=== PATIENT | male | born 1970 | race African-American/Black ===

== ENCOUNTER 2023-07-25 09:09 | Outpatient (CLI) | payer MEDICARE, SELFPAY ==
--- NOTE | 2023-07-25 | ECG_ITS ---
Measurements Intervals [place] Rate: 62 P: -15 NH: 168 QRS: 1 QRSD: 96 T: 69 QT: 480 QTc: 488 Interpretive Statements SINUS RHYTHM VENTRICULAR PREMATURE COMPLEXES LOW QRS VOLTAGE IN LIMB LEADS CANNOT RULE OUT SEPTAL INFARCT, AGE INDETERMINATE CONSIDER INFERIOR INFARCT, AGE INDETERMINATE BASELINE WANDER- I, II, III ABNORMAL ECG NO PRIOR ECG FOR COMPARISON Electronically Signed On 07-25-2023 9:58:04 [employer] FI[employer] COORDINATOR by Dnenis Mayfield D.O.
== END 2023-07-25 09:10 | disposition home or self-care (01) ==
LOC: ANHCARD 09:20
PROVIDERS: PCP Family Medicine; Visit Provider Physician Assistant
DX: Z01.818 Encounter for other preprocedural examination (principal); R94.31 Abnormal electrocardiogram [ECG] [EKG]
CPT/HCPCS: 93005

== ENCOUNTER 2023-08-14 13:17 | Outpatient (CLI) | payer MEDICARE, SELFPAY ==
--- NOTE | 2023-08-14 | ECHO_ITS ---
Patient Info Name: Gibson Maloney Age: 53 years : 1970 Gender: Male Ht: 70 in Wt: 250 lbs BSA: 2.41 m2 HR: 52 bpm BP: 176 / 95 mmHg Technical Quality: Good Exam Date: 08/14/2023 2:49 PM Exam Location: Echo Lab Patient Status: Outpatient Admit Date: 08/14/2023 Staff Ordering Physician: JohanAura Attending Provider: AlejandroAura Exam Type: CA echo doppler color flow Study Info Indications - diastolic dysfunction Complete two-dimensional, color flow and Doppler transthoracic echocardiogram is performed. Summary 1. Complete two-dimensional, color flow and Doppler transthoracic echocardiogram is performed. 2. Left ventricular chamber dimension is normal. 3. Left ventricular systolic function is normal, estimated at 60-65%. 4. There is mild concentric increased left ventricular wall thickness. 5. The left ventricular diastolic function is abnormal. 6. E/e' 17 is elevated. 7. Left atrial chamber dimension is moderately enlarged. 8. Right atrial chamber dimension is moderately enlarged. 9. The mitral valve has moderately calcified annulus. 10. There is mild mitral valve regurgitation. 11. There is trace tricuspid valve regurgitation. 12. There is trace pulmonic regurgitation. 13. There is trivial pericardial effusion. Left Ventricle E/e' 17 is elevated. Left ventricular chamber dimension is normal. Left ventricular systolic function is normal, estimated at 60-65%. There is mild concentric increased left ventricular wall thickness. The left ventricular diastolic function is abnormal. Right Ventricle Right ventricular systolic function is normal and with normal TAPSE 2.7 cm. Right ventricular chamber dimension is normal. Left Atria Left atrial chamber dimension is moderately enlarged. Right Atria Right atrial chamber dimension is moderately enlarged. Aortic Valve The aortic valve is trileaflet. There is no aortic valve stenosis. There is no aortic valve regurgitation. Pulmonic Valve There is trace pulmonic regurgitation. Mitral Valve The mitral valve has moderately calcified annulus. There is no mitral valve stenosis. There is mild mitral valve regurgitation. Tricuspid Valve There is trace tricuspid valve regurgitation. RVSP is not calculated due to an inadequate TR jet. Pericardium/Pleural There is trivial pericardial effusion. Inferior Vena Cava Normal inferior vena cava with >50% collapse upon inspiration consistent with normal right atrial pressure, 5 mmHg. Aorta The aortic root size at the sinus of Valsalva is normal. Left Ventricular Outflow Tract Name Value Normal LVOT 2D LVOT Diameter 2.1 cm LVOT Doppler LVOT Peak Gradient 2 mmHg LVOT Mean Gradient 1 mmHg LVOT VTI 23 cm LVOT VTI/AV VTI Ratio 0.6 LVOT Stroke Volume 83 ml LVOT CO 4.2 l/min LVOT CI 1.8 l/min/m2 Pulmonic Valve Name Value Normal
== END 2023-08-14 13:18 | disposition home or self-care (01) ==
LOC: ANHCARD 13:18
PROVIDERS: PCP Family Medicine; Visit Provider Physician Assistant
DX: I51.9 Heart disease, unspecified (principal); Z01.818 Encounter for other preprocedural examination; I34.0 Nonrheumatic mitral (valve) insufficiency
CPT/HCPCS: 93306

== ENCOUNTER 2023-09-25 12:48 | Outpatient (CLI) | payer MEDICARE, SELFPAY ==
[2023-09-25 14:29] LABS: Potassium 4.6 mmol/L (3.4-5.0)
== END 2023-09-25 12:49 | disposition home or self-care (01) ==
PROVIDERS: PCP Family Medicine; Visit Provider Ophthalmology
DX: E11.9 Type 2 diabetes mellitus without complications (principal)
CPT/HCPCS: 36415; 84132

== ENCOUNTER 2024-04-29 10:32 | Outpatient (CLI) | payer MEDICARE, SELFPAY ==
[2024-04-29 11:56] LABS: Cholesterol 151 mg/dL (0-200); HDL Direct 61 mg/dL; Triglycerides 64 mg/dL (<150)
[2024-04-29 12:06] LABS: LDL Cholesterol Direct 58 mg/dL
== END 2024-04-29 10:33 | disposition home or self-care (01) ==
PROVIDERS: PCP Physician Assistant; Visit Provider Internal Medicine Cardiovascular Disease
DX: E78.5 Hyperlipidemia, unspecified (principal)
CPT/HCPCS: 36415; 80061

== ENCOUNTER 2024-08-23 11:45 | Emergency (ER) | payer MEDICARE, SELFPAY ==
--- NOTE | ~2024-08-23 | CT_ITS ---
CT abdomen pelvis wo con Ordering provider: Varinder Guerrero MD History: 54 years Male with . RUQ pain . Comparison: None. Technique: CT abdomen and pelvis without IV and without oral contrast. Automated exposure control and iterative reconstruction technique were employed. The dose-length product was 1007.56 mGy-cm. Findings: VISUALIZED LOWER CHEST: Normal. UPPER ABDOMINAL ORGANS: Liver: Normal. Gallbladder: Normal. Spleen: Normal. Stomach/duodenum: Normal. Pancreas: Normal. Adrenals: Normal. Kidneys: Tiny calcification in the right and left kidney lower pole which may be a stone or vascular calcification. PELVIC ORGANS: The bladder is underfilled with thickened wall. Evaluation for cystitis advised. BOWEL AND MESENTERY: Colon: No evidence of diverticulitis. Fecal material is seen in the colon.. No evidence of appendicit is with nonvisualization of the appendix. Small Bowel: Normal. No obstruction. Peritoneum/mesentery: No free air or free fluid. No mesenteric lymphadenopathy. RETROPERITONEUM: Mild atheromatous disease of the abdominal aorta. No retroperitoneal lymphadenopat hy. MUSCULOSKELETAL: Superficial soft tissues: The superficial soft tissues are normal. Bones: Age appropriate degenerative changes of the spine. IMPRESSION: 1. No evidence of appendicitis, diverticulitis or intestinal obstruction. 2. Tiny calcifications in the right and left kidney which is most likely vascular. Stones are less l ikely. 3. Constipation. Reviewed, dictated and finalized at location A. [employer] IMPRESSION: 1. No evidence of appendicitis, diverticulitis or intestinal obstruction. 2. Tiny calcifications in the right and left kidney which is most likely vascu lar. Stones are less likely. 3. Constipation.
[2024-08-23 12:21] VITALS: BP 167/91; PULSE 75; RESP 16; TEMP 36.4; O2SAT 97
[2024-08-23 14:50] VITALS: BP 191/110; PULSE 70; RESP 17; O2SAT 99
[2024-08-23 15:06] LABS: Basophils Percent Auto 0.4 % (0.2-1.2); Eosinophils Absolute Auto 0.1 K/mm3 (0-0.3); Hematocrit 38.3 % (42.0-52.0); Hemoglobin 12.5 g/dL (14.0-18.0); Immature Granulocyte Absolute 0.02 K/mm3 (0.00-0.031); Immature Granulocyte Percent A 0.4 % (0-0.5); Lymphocytes Absolute Auto 1.11 K/mm3 (0.9-3.2); Lymphocytes Percent Auto 24.6 % (18.3-44.2); Mean Corpuscular HGB Conc 32.6 g/dl (32-36); Mean Corpuscular Hemoglobin 32.4 pg (26-34); Mean Corpuscular Volume 99.2 fl (80-100); Mean Platelet Volume 9.2 fl (7.4-10.4); Monocytes Absolute Auto 0.6 K/mm3 (0.1-0.6); Neutrophils Absolute Auto 2.6 K/mm3 (1.3-6.7); Neutrophils Percent Auto 58.6 % (45.5-73.1); Platelet Count Result 178 k/mm3 (150-375); Red Blood Count 3.86 M/mm3 (4.6-6.20); White Blood Count 4.5 K/mm3 (4.5-10.0)
[2024-08-23 15:16] LABS: Alanine Aminotransferase 30 U/L (6-50); Albumin Level 4.5 g/dL (3.5-5.1); Alkaline Phosphatase 77 U/L (38-126); Anion Gap 12 mmol/L (4-12); Aspartate Amino Transferase 36 U/L (17-59); Bilirubin,Total 1.1 mg/dL (0.2-1.3); Blood Urea Nitrogen 85 mg/dL (9-20); Calcium 7.6 mg/dL (8.4-10.2); Carbon Dioxide 30 mmol/L (22-30); Chloride 99 mmol/L (98-107); Estimated CRCL calculation 9 ml/min; Estimated Glomerular Filt Rate 6; Glucose 76 mg/dL (65-110); Lipase 135 U/L (23-300); Sodium 141 mmol/L (137-145)
[2024-08-23 15:26] LABS: Add Urine Microscopic? YES; Appearance Urine Cloudy (Clear); Bacteria Urine None Seen /hpf; Bilirubin Urine Negative (Negative); Blood Urine Negative (Negative); Color Urine Dark Yellow (Yellow); Glucose Urine UA Negative (Negative); Ketones Urine Trace mg/dL (Negative); Leukocyte Esterase Ur Trace LEU/UL (Negative); Need Manual Microscopic Reviewed; Nitrate Urine Negative (Negative); Protein Urine 2+ mg/dL (Negative); RBC Urine 0-2 /hpf (0-2); Specific Grav Ur 1.015 (1.001-1.035); Squamous Epithelial Cell Urine Occasional /hpf (Few)
--- NOTE | 2024-08-23 15:46 | ED_ITS ---
HPI - General Adult General Chief complaint: Nausea/Vomiting/Diarrhea Stated complaint: n/v/d Time Seen by Provider: 08/23/24 14:47 History of Present Illness HPI narrative: 54-year-old male presenting emergency department for back for nausea vomiting diarrhea. Patient reports symptoms started a week ago on Sunday. Patient reports that was a massive purge. Patient does have end-stage renal disease does get dialysis typical and Sunday. Patient's schedule was thrown off because all day and patient did have dialysis on but because he was feeling ill on Sunday he did not have his dialysis. Patient does complain of right upper quadrant pain. Patient has no prior history gallbladder disease or cholecystectomy. Related Data Home Medications ?Medication ?Instructions ?Recorded ?Confirmed ?Last Taken ?Type atorvastatin 20 mg tablet 20 mg PO DAILY 08/16/23 03/28/24 Unknown History furosemide 80 mg tablet 80 mg PO BID 08/16/23 03/28/24 Unknown History hydralazine 50 mg tablet 50 mg PO TID 08/16/23 03/28/24 Unknown History apixaban 5 mg tablet (Eliquis) 5 mg PO BID 03/27/24 03/28/24 Unknown History baclofen 5 mg tablet 5 mg PO DAILY 03/27/24 03/28/24 Unknown History metoprolol succinate 25 mg 12.5 mg PO BID 03/27/24 03/28/24 Unknown History tablet,extended release 24 hr Allergies Allergy/AdvReac Type Severity Reaction Status Date / Time AVILA Inhibitors Allergy Unknown Other Verified 03/27/24 15:34 No Known Allergies Allergy Verified 03/27/24 15:34 Review of Systems 2 Review of Systems: All systems reviewed & are unremarkable except as noted in HPI and below PMFSH Surgical History Surgical History History of appendectomy Family History Family History Mother Family history of diabetes mellitus in first degree relative Father Family history of diabetes mellitus in first degree relative Sibling Family history of diabetes mellitus in first degree relative Social History Social History Smoking status: Never smoker Alcohol intake: never Do You Feel Safe in your Home?: Yes Lack of Transportation: No Lack of Food: Never True Current Housing: I Have Housing Concerned About Future Housing: No Difficulty Paying Gas/Electric Bills: No Difficulty Paying for Meds: No Currently Unemployed: YES Education: Bachelor's Degree Difficulty w/ Childcare or Family Care: No Exam 2 Narrative: APPEARANCE: Well appearing, no pain, no distress, well-nourished. HEAD: normocephalic, atraumatic. EYES: PERRLA/EOMI, conjunctivae clear. NOSE: Normal no drainage EARS:TMS clear with good light reflex. THROAT: Pharynx clear, no exudate. NECK: Supple. No adenopathy, no masses. RESPIRATORY: Airway patent, respirations nonlabored. Clear to auscultation bilaterally, no rales, rhonchi, wheezing. CARDIOVASCULAR: Regular rate and rhythm without murmurs rubs or gallops. ABDOMINAL: Right upper quadrant tenderness to palpation MUSCULOSKELETAL: Moves all extremities. Strength/ROM intact, No edema, No calf tenderness. NEURO: Alert. Cranial nerves II through XII intact. Grossly intact SKIN: Warm, dry. Normal Color Course Vital Signs Vital signs: Vital Signs Temperature 97.5 F L 08/23/24 12:21 Pulse Rate 75 08/23/24 12:21 Respiratory Rate 16 08/23/24 12:21 Blood Pressure 167/91 H 08/23/24 12:21 Pulse Oximetry 97 08/23/24 12:21 Oxygen Delivery Room Air 08/23/24 12:21 Temperature 97.5 F L 08/23/24 12:21 Pulse Rate 70 08/23/24 14:50 Respiratory Rate 17 08/23/24 14:50 Blood Pressure 191/110 H 08/23/24 14:50 Pulse Oximetry 99 08/23/24 14:50 Oxygen Delivery Room Air 08/23/24 12:21 Medical Decision Making [facility] Narrative Medical decision making narrative: 54-year-old male presents to the emergency department for evaluation for persistent nausea vomiting and diarrhea. Patient does have right upper quadrant abdominal pain. Patient is afebrile with no leukocytosis and hemoglobin of 12.5. Patient has no significant abnormalities on his electrolytes. T bili AST ALT alk-phos and lipase are within normal limits. UA does have some white blood cells in the urine but no symptoms of UTI. CT scan did show evidence of constipation. Patient was updated the results of his workup. Patient was advised to follow a clear liquid diet for the next 1-3 days and take Zofran as needed for nausea control. Patient does have dialysis scheduled again on Sunday. Patient was comfortable plan for discharge and close follow-up. Patient was well-appearing at time of discharge. Differential Diagnosis Differential Diagnosis: Bowel obstruction, colitis, diverticulitis cholecystitis, biliary colic, pneumonia Vital Signs Vital Signs: Vital Signs Temperature 97.5 F L 08/23/24 12:21 Pulse Rate 75 08/23/24 12:21 Respiratory Rate 16 08/23/24 12:21 Blood Pressure 167/91 H 08/23/24 12:21 Pulse Oximetry 97 08/23/24 12:21 Oxygen Delivery Room Air 08/23/24 12:21 Temperature 97.5 F L 08/23/24 12:21 Pulse Rate 70 08/23/24 14:50 Respiratory Rate 17 08/23/24 14:50 Blood Pressure 191/110 H 08/23/24 14:50 Pulse Oximetry 99 08/23/24 14:50 Oxygen Delivery Room Air 08/23/24 12:21 Lab Data Lab results reviewed: Yes I reviewed the patient's lab results. 08/23/24 14:57 08/23/24 14:57 Labs: Lab Results 08/23/24 08/23/24 Range/Units 14:57 15:07 WBC 4.5 (4.5-10.0) K/mm3 RBC 3.86 L (4.6-6.20) M/mm3 Hgb 12.5 L (14.0-18.0) g/dL Hct 38.3 L (42.0-52.0) % MCV 99.2 (80-100) fl MCH 32.4 (26-34) pg MCHC 32.6 (32-36) g/dl RDW 14.0 (11.5-14.5) % Plt Count 178 (150-375) k/mm3 MPV 9.2 (7.4-10.4) fl Immature Gran % (Auto) 0.4 (0-0.5) % Neut % (Auto) 58.6 (45.5-73.1) % Lymph % (Auto) 24.6 (18.3-44.2) % [place] % (Auto) 14.0 H (2.6-8.5) % Eos % (Auto) 2.0 (0-4.4) % Baso % (Auto) 0.4 (0.2-1.2) % Lymph # (Auto) 1.11 (0.9-3.2) K/mm3 Powell # (Auto) 0.6 (0.1-0.6) K/mm3 Eos # (Auto) 0.1 (0-0.3) K/mm3 Baso # (Auto) 0.0 (0.0-0.1) K/mm3 Abs Immat Gran (auto) 0.02 (0.00-0.031) K/mm3 Absolute Neuts (auto) 2.6 (1.3-6.7) K/mm3 Absolute Nucleated RBC 0.000 (0.0-0.012) K/mm3 Nucleated RBC % 0.0 (0.0-0.2) % Sodium 141 (137-145) mmol/L Potassium 4.0 (3.4-5.0) mmol/L Chloride 99 (98-107) mmol/L Carbon Dioxide 30 (22-30) mmol/L Anion Gap 12 (4-12) mmol/L BUN 85 H (9-20) mg/dL Creatinine 10.70 H (0.7-1.3) mg/dL Estim Creat Clear Calc 9 ml/min Estimated GFR 6 L (59 - ) Glucose 76 (65-110) mg/dL Calcium 7.6 L (8.4-10.2) mg/dL Total Bilirubin 1.1 (0.2-1.3) mg/dL AST 36 (17-59) U/L ALT 30 (6-50) U/L Alkaline Phosphatase 77 (38-126) U/L Total Protein 8.0 (6.3-8.2) g/dL Albumin 4.5 (3.5-5.1) g/dL Lipase 135 (23-300) U/L Urine Color Dark yellow (Yellow) Urine Appearance Cloudy H (Clear) Urine pH 5.0 (5.0-9.0) Ur Specific [place] 1.015 (1.001-1.035) Urine Protein 2+ H (Negative) mg/dL Urine Glucose (UA) Negative (Negative) mg/dL Urine Ketones Trace H (Negative) mg/dL Ur Blood (Man) Negative (Negative) Urine Nitrate Negative (Negative) Urine Bilirubin Negative (Negative) Urine Urobilinogen 1.0 (<2.0) mg/dL Add Ur Microanalysis Reviewed Leukocyte Esterase Rfl Trace H (Negative) TIAN/UL Urine RBC 0-2 (0-2) /hpf Urine WBC 6-10 H (0-3) /hpf Ur Squamous Epith Cells Occasional (Few) /hpf Urine Bacteria None seen /hpf Urine Casts 6-10 Imaging Data Radiologist's impression: Impressions Abdomen/Pelvis CT 08/23/24 16:30 IMPRESSION: 1. No evidence of appendicitis, diverticulitis or intestinal obstruction. 2. Tiny calcifications in the right and left kidney which is most likely vascular. Stones are less likely. 3. Constipation. Discharge Plan Discharge Clinical Impression: N&V (nausea and vomiting), Constipation Patient Disposition: Home, Self-Care Condition: Stable Instructions: Antibiotic Form, Constipation (DC), Clear Liquid Diet (ED), Acute Nausea and Vomiting (ED) Additional Instructions: Clear liquid diet for the next 1-3 days. Reglan as needed for nausea control. Have close follow-up with your primary care physicians. And go to dialysis as scheduled. If you have any worsening symptoms then please call or return to the emergency department. Patient Language: Macedonian Prescriptions: New metoclopramide HCl [Reglan] 10 mg tablet 10 mg PO Q6H PRN (Reason: nausea and vomiting) Qty: 14 0RF No Action Eliquis 5 mg tablet 5 mg PO BID furosemide 80 mg tablet 80 mg PO BID atorvastatin 20 mg tablet 20 mg PO DAILY hydralazine 50 mg tablet 50 mg PO TID baclofen 5 mg tablet 5 mg PO DAILY metoprolol succinate 25 mg tablet extended release 24 hr 12.5 mg PO BID Follow-up/Referrals: Johan,FRANCI Chavarria [Primary Care Provider] -
== END 2024-08-23 18:23 | disposition home or self-care (01) ==
PROVIDERS: Emergency Provider Emergency Medicine; PCP Physician Assistant
DX: R11.2 Nausea with vomiting, unspecified (principal); K59.00 Constipation, unspecified; N18.6 End stage renal disease; Z99.2 Dependence on renal dialysis; Z79.01 Long term (current) use of anticoagulants; Z79.899 Other long term (current) drug therapy; R93.422 Abnormal radiologic findings on diagnostic imaging of left kidney; R93.421 Abnormal radiologic findings on diagnostic imaging of right kidney
CPT/HCPCS: 36415; 74176; 80053; 81001; 83690; 85025; 87086; 96374; 99284

== ENCOUNTER 2025-02-23 13:29 | Outpatient (CLI) | payer MEDICARE, SELFPAY ==
--- OUTSIDE RECORDS SUMMARY | 2025-02-23 13:51 | XMS_ITS | Data Portability ---
Author Organization [facility] Address [address] [place] [address] Care Team Providers Care Reservations Specialist Name Role Phone AURA FLORES Primary Care Provider Assessment Encounter Date Assessment Date Assessment LastModified by Organization Details LastModified Time 07/24/2023 07/24/2023 Sections of the HPI, exam and assessment completed by FRANCI Brownlee student and have been reviewed by me. I agree with the exam findings, assessment and plan except where specifically documented or amended. -ANTELMO Martins PA-C [email or web address] Not available 07/25/2023 15:03:45 10/09/2023 10/09/2023 Sections of the HPI, exam and assessment completed by FRANCI Brownlee student and have been reviewed by me. I agree with the exam findings, assessment and plan except where specifically documented or amended. -ANTELMO Martins PA-C [email or web address] Not available 10/09/2023 15:59:36 Plan of Treatment Reminders Order Date Submit Date Provider Last Modified By Organization Details Last Modified Time Details Appointments ANY 15 2024 01:00P FRANCI MCDUFFIE Not available Not available Not available Lab hemoglobi n A1c, QN, blood 2024 025 [email or web address] [facility], [address], [address], [place], [address], 02/18/2025 08:25:46 CBC w/ auto diff 2024 025 [facility]/Ekg, [address], [place], [address], 02/23/2025 14:47:04 CMP, serum or plasma 2024 025 [facility], [address], [place], [address], 02/23/2025 14:45:00 lipid panel, serum 2024 025 [facility]/Ekg, [facility], [place], [address], 02/23/2025 14:43:56 TSH + free T4, serum 2024 025 [facility] Registration [facility]/Ekg, [address], [place], [address], 02/23/2025 14:43:09 HbA1c (hemoglob in A1c), blood 2023 024 [email or web address] In-Office Order, Internal Use Only DO Not Attach Compendium DO Not Attach Compendium, Do Not Delete/merge, [id number] 10/09/2023 15:59:23 noninvasi ve colorecta l cancer DNA + occult blood screening , QL, stool 2022 023 [facility] (Cologuard Orders Only), [address], [address], [place], [address], 09/27/2023 09:46:42 CBC w/ auto diff 2022 023 [facility], [address], [place], [address], 07/25/2023 19:08:33 TSH + free T4, serum 2022 023 VALERIO [facility], [address], [place], [address], 07/26/2023 02:35:57 CMP, serum or plasma 2022 023 COTTER [facility], [address], [place], [address], 07/25/2023 19:08:32 HbA1c (hemoglob in A1c), blood 2022 023 [email or web address] In-Office Order, Internal Use Only DO Not Attach Compendium DO Not Attach Compendium, Do Not Delete/merge, [id number] 07/24/2023 15:56:16 lipid panel, serum 2022 023 COTTER [facility], [address], [place], [address], 07/25/2023 19:08:32 Referral gastroent erologist referral 2024 025 [email or web address] Marcelino Whitten MD, [address], [address], [place], [address], 02/11/2025 08:03:21 podiatris t referral 2022 023 guy Herrmann DPM, [address], [address], [place], [address], 09/05/2023 11:15:50 gastroent erologist referral [address], [address], [place], [address], 08/08/2023 15:49:15 Procedures None recorded. Surgeries None recorded. Imaging electroca rdiogram, routine ECG, 12 leads min 2022 023 [facility], [address], [address], [place], [address], 07/25/2023 12:27:57 US, echocardi ogram, transthor acic, complete 2022 023 [facility], [address], [address] [facility], [place], [address], 08/28/2023 17:36:08 Medication Orders atorvasta tin 40 mg tablet 2024 025 VALERIO [id number], [address], [place], [place], [id number], 01/28/2025 15:53:56 Patient TargetsNo targets recorded. 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 Referral for Onyc homycosis of toenails Referring Physician: Aura Flores [facility], Encounter Date: 07/24/2023 Degreaser Referral for Screening for malignant neoplasm of colon Referring Physician: Aura Flores [facility], Encounter Date: 07/24/2023 Degreaser Referral for Screening for malignant neoplasm of colon Referring Physician: Aura Flores [facility], Encounter Date: 01/28/2025 Results Created Date Observation Date Name Description Value Unit Range Abnormal Flag Note LastModifiedBy Organization Detail LastModifiedTime 07/24/2007/25/2023 LIPID PANEL WITH LDL/H DL RATIO cholesterol, total 214 mg/dL 100-19 9 above high normal Not Available [facility] Department [address] [place], [address], 07/25/2023 19:08:32 07/24/2007/25/2023 LIPID PANEL WITH LDL/H DL RATIO triglyceride s 103 mg/dL 0-149 Not Available [facility] Department [address] [place], [address], 07/25/2023 19:08:32 07/24/2007/25/2023 LIPID PANEL WITH LDL/H DL RATIO HDL cholesterol 46 mg/dL 40-[address] [facility] Department [address] [place], [address], 07/25/2023 19:08:32 07/24/20 23 07/25/2023 LIPID PANEL WITH LDL/H DL RATIO VLDL cholesterol marie 21 mg/dL 5-40 Not Available [facility] Department [address] [place], [address], 07/25/2023 19:08:32 07/24/20 23 07/25/2023 LIPID PANEL WITH LDL/H DL RATIO LDL chol calc ([facility]) 161 mg/dL 0-99 above high normal Not Available [facility] Department [address] [place], [address], 07/25/2023 19:08:32 07/24/20 23 07/25/2023 LIPID PANEL WITH LDL/H DL RATIO LDL/HDL ratio 3.5 0-3.6 Not Available [facility] Department [address] [place], [address], 07/25/2023 19:08:32 07/24/20 23 07/25/2023 COMP. METAB OLIC PANEL (14) glucose 84 mg/dL 70-[address] [facility] Department [address] [place], [address], 07/25/2023 19:08:32 07/24/20 23 07/25/2023 COMP. METAB OLIC PANEL (14) BUN 76 mg/dL 6-24 panic high RESUL TS VERIF IED AND SHARP D TO FRANCI Guerra BY Tammy acuña AT 1723 ON 07/25. Not Available [facility] Department [address] [place], [address], 07/25/2023 19:08:32 07/24/20 23 07/25/2023 COMP. METAB OLIC PANEL (14) creatinine 5.62 mg/dL 0.76-1 .27 panic high RESUL TS VERIF IED AND SHARP D TO FRANCI Guerra BY Tammy acuña AT 1728 ON 07/25. Not Available [facility] Department [address] [place], [address], 07/25/2023 19:08:32 07/24/20 23 07/25/2023 COMP. METAB OLIC PANEL (14) eGFR 11 >=60 below low normal Units for eGFR value s are mL/mi n/1.7 3 The eGFR Calcu latio n has not been valid ated for patie nts under the age of 18. If test resul ts are displ ayed for a patie nt under the age of 18, disre jeannette that value . Not Available [facility] Department [address] [place], [address], 07/25/2023 19:08:32 07/24/20 23 07/25/2023 COMP. METAB OLIC PANEL (14) BUN/creatini ne ratio 14 9-20 Not Available [facility] Department [address] [place], [address], 07/25/2023 19:08:32 07/24/20 23 07/25/2023 COMP. METAB OLIC PANEL (14) sodium 144 mmol/ L 134-[address] [facility] Department [address] [place], [address], 07/25/2023 19:08:32 07/24/20 23 07/25/2023 COMP. METAB OLIC PANEL (14) potassium 5.3 mmol/ L 3.5-5. 2 above high normal Not Available [facility] Department [address] [place], [address], 07/25/2023 19:08:32 07/24/20 23 07/25/2023 COMP. METAB OLIC PANEL (14) chloride 104 mmol/ L 96-[address] [facility] Department [address] [place], [address], 07/25/2023 19:08:32 07/24/20 23 07/25/2023 COMP. METAB OLIC PANEL (14) carbon dioxide, total 25 mmol/ L Not Available [facility] Department [address] [place], [address], 07/25/2023 19:08:32 07/24/20 23 07/25/2023 COMP. METAB OLIC PANEL (14) calcium 7.8 mg/dL 8.7-10 .2 below low normal Not Available [facility] Department [address] [place], [address], 07/25/2023 19:08:32 07/24/20 23 07/25/2023 COMP. METAB OLIC PANEL (14) protein, total 7.2 g/dL 6.0-8. [address] [facility] Department [address] [place], [address], 07/25/2023 19:08:32 07/24/20 23 07/25/2023 COMP. METAB OLIC PANEL (14) albumin 4.3 g/dL 3.8-4. [address] [facility] Department [address] [place], [address], 07/25/2023 19:08:32 07/24/20 23 07/25/2023 COMP. METAB OLIC PANEL (14) globulin, total 2.9 g/dL 1.5-4. [address] [facility] Department [address] [place], [address], 07/25/2023 19:08:32 07/24/20 23 07/25/2023 COMP. METAB OLIC PANEL (14) A/G ratio 1.0 1.2-2. 2 below low normal Not Available [facility] Department [address] [place], [address], 07/25/2023 19:08:32 07/24/20 23 07/25/2023 COMP. METAB OLIC PANEL (14) bilirubin, total 0.3 mg/dL 0.0-1. [address] [facility] Department [address] [place] [address], [address], 07/25/2023 19:08:32 07/24/20 23 07/25/2023 COMP. METAB OLIC PANEL (14) alkaline phosphatase 98 IU/L 44-[address] [facility] Department [address] [place], [address], 07/25/2023 19:08:32 07/24/20 23 07/25/2023 COMP. METAB OLIC PANEL (14) AST (SGOT) 20 IU/L 0-40 Not Available [facility] Department [address] [place] [address], [address], 07/25/2023 19:08:32 07/24/20 23 07/25/2023 COMP. METAB OLIC PANEL (14) ALT (SGPT) 16 IU/L 0-44 Not Available [facility] Department [address] [place] [address], [address], 07/25/2023 19:08:32 07/24/20 23 07/25/2023 CBC WITH DIFFE RENTI AL/PL ATELE T WBC 6.5 x10e3 /uL 3.4-[address] [facility] Department [address] [place] [address], [address], 07/25/2023 19:08:33 07/24/20 23 07/25/2023 CBC WITH DIFFE RENTI AL/PL ATELE T RBC 3.31 x10e6 /uL 4.14-5 .80 below low normal Not Available [facility] Department [address] [place] [address], [address], 07/25/2023 19:08:33 07/24/20 23 07/25/2023 CBC WITH DIFFE RENTI AL/PL ATELE T hemoglobin 10.2 g/dL 13.0-1 7.7 below low normal Not Available [facility] Department [address] [place], [address], 07/25/2023 19:08:33 07/24/20 23 07/25/2023 CBC WITH DIFFE RENTI AL/PL ATELE T hematocrit 34.1 % 37.5-5 1.0 below low normal Not Available [facility] Department [address] [place], [address], 07/25/2023 19:08:33 07/24/20 23 07/25/2023 CBC WITH DIFFE RENTI AL/PL ATELE T MCV 103 fL 79-97 above high normal Not Available [facility] Department [address] [place], [address], 07/25/2023 19:08:33 07/24/20 23 07/25/2023 CBC WITH DIFFE RENTI AL/PL ATELE T MCH 30.8 pg 26.6-[address] [facility] Department [address] [place], [address], 07/25/2023 19:08:33 07/24/20 23 07/25/2023 CBC WITH DIFFE RENTI AL/PL ATELE T MCHC 29.9 g/dL 31.5-3 5.7 below low normal Not Available [facility] Department [address] [place], [address], 07/25/2023 19:08:33 07/24/20 23 07/25/2023 CBC WITH DIFFE RENTI AL/PL ATELE T RDW 11.9 % 11.5-[address] [facility] Department [address] [place], [address], 07/25/2023 19:08:33 07/24/20 23 07/25/2023 CBC WITH DIFFE RENTI AL/PL ATELE T platelets 246 x10e3 /uL 150-[address] [facility] Department [address] [place], [address], 07/25/2023 19:08:33 07/24/20 23 07/25/2023 CBC WITH DIFFE RENTI AL/PL ATELE T neutrophils 64 % notest b. Not Available [facility] Department [address] [place], [address], 07/25/2023 19:08:33 07/24/20 23 07/25/2023 CBC WITH DIFFE RENTI AL/PL ATELE T lymphs 18 % notest b. Not Available [facility] Department [address] [place], [address], 07/25/2023 19:08:33 07/24/20 23 07/25/2023 CBC WITH DIFFE RENTI AL/PL ATELE T monocytes 13 % notest b. Not Available [facility] Department [address] [place], [address], 07/25/2023 19:08:33 07/24/20 23 07/25/2023 CBC WITH DIFFE RENTI AL/PL ATELE T eos 5 % notest b. Not Available [facility] Department [address] [place], [address], 07/25/2023 19:08:33 07/24/20 23 07/25/2023 CBC WITH DIFFE RENTI AL/PL ATELE T basos 1 % notest b. Not Available [facility] Department [address] [place], [address], 07/25/2023 19:08:33 07/24/20 23 07/25/2023 CBC WITH DIFFE RENTI AL/PL ATELE T neutrophils (absolute) 4.2 x10e3 /uL 1.4-7. [address] [facility] Department [address] [place], [address], 07/25/2023 19:08:33 07/24/20 23 07/25/2023 CBC WITH DIFFE RENTI AL/PL ATELE T lymphs (absolute) 1.2 x10e3 /uL 0.7-3. [address] [facility] Department [address] [place], [address], 07/25/2023 19:08:33 07/24/20 23 07/25/2023 CBC WITH DIFFE RENTI AL/PL ATELE T monocytes(ab solute) 0.9 x10e3 /uL 0.1-0. [address] [facility] Department [address] [place], [address], 07/25/2023 19:08:33 07/24/20 23 07/25/2023 CBC WITH DIFFE RENTI AL/PL ATELE T eos (absolute) 0.3 x10e3 /uL 0.0-0. [address] [facility] Department [address] [place], [address], 07/25/2023 19:08:33 07/24/20 23 07/25/2023 CBC WITH DIFFE RENTI AL/PL ATELE T baso (absolute) 0.0 x10e3 /uL 0.0-0. [address] [facility] Department [address] [place], [address], 07/25/2023 19:08:33 07/24/20 23 07/25/2023 CBC WITH DIFFE RENTI AL/PL ATELE T immature granulocytes 0.5 % notest b. Not Available [facility] Department [address] [place], [address], 07/25/2023 19:08:33 07/24/20 23 07/25/2023 CBC WITH DIFFE RENTI AL/PL ATELE T immature grans (abs) 0.0 x10e3 /uL 0.0-0. [address] [facility] Department [address] [place], [address], 07/25/2023 19:08:33 07/24/20 23 07/25/2023 CBC WITH DIFFE RENTI AL/PL ATELE T NRBC 0 % 0-0 Not Available [facility] Him Department [address], [place], [address], 07/25/2023 19:08:33 07/24/2007/26/2023 TSH+F REE T4 TSH 1.560 uIU/m L 0.450- 4.500 Not Available [facility] ([facility]) [address], [place], [address], 07/26/2023 08:31:14 07/24/20 23 07/26/2023 TSH+F REE T4 T4,free(dire ct) 1.28 NG/dL 0.82-1 .77 Not Available [facility] ([facility]) [address], [place], [address], 07/26/2023 08:31:14 07/24/20 23 07/24/2023 HbA1c (hemo globi n A1c), blood HbA1c 6.2% Not Available In-Office Order Internal Use Only DO Not Attach Compendium DO Not Attach Compendium, Do Not Delete/merge, [id number] 07/24/2023 15:49:31 09/07/19 24 09/07/2023 COLOG UARD cologuard result reportable Negati ve negati ve normal NEGAT LAMIN TEST RESUL T. A negat lamin Colog uard resul t indic ates a low likel ihood that a color ectal cance r (CRC) or advan indy adeno ma (chandni omato us polyp s with more advan indy pre-m align ant featu res) is prese nt. The chanc e that a perso n with a negat lamin Colog uard test has a color ectal cance r is less than 1 in 1500 (nega tive predi ctive value >99.9 %) or has an advan indy adeno ma is less than 5.3% (nega tive predi ctive value 94.7% ). These data are based on a prosp ectiv e cross -sect ional study of 10,00 0 indiv idual s at [place] [facility] risk for color ectal cance r who were scree lisa with both Colog uard and colon oscop y. (Wilder Delcid. et al, N Engl J Med 2014; 370(1 4):12 86-12 97) The elba l value (refe rence range ) for this assay is negat lamin. COLOG UARD RE-SC REENI NG RECOM MENDA TION: Perio dic color ectal cance r scree jeanne is an impor tant part of preve ntive healt hcare for asymp tomat ic indiv idual [facility] at [facility] for color ectal cance r. Follo wing a negat lamin Colog uard resul t, the Ameri can Cance r Socie ty and U.S. Multi -Soci ety Task Force scree jeanne guide lines recom mend a Colog uard re-sc reeni ng inter thania of 3 years . Refer ences : Ameri can Cance r Socie ty Guide line for Color ectal Cance r Scree jeanne: https ://gagan w.can cer.o rg/ca ncer/ colon -rect al-ca ncer/ detec tion- diagn osis- stagi ng/ac s-rec ommen datio ns.ht ml.; Mele VAZQUEZ, Indu layne CR, Neto JAEGER, Color ectal Cance r Scree jeanne: Recom menda tions for Physi cians and Patie nts from the U.S. Multi -Soci ety Task Force on Color ectal Cance r Scree jeanne , Am Sunday charles y 2017; 112:1 016-1 030. TEST DESCR IPTIO N: [place] site algor ithmi c bud sis of stool DNA-b iolauryn kers with hemog lobin immun oassa y. Quant itati ve value s of indiv idual bioma rkers are not repor table and are not assoc iated with indiv idual bioma rker resul t refer ence range s. Colog uard is inten ded for color ectal cance r scree jeanne of adult s of eithe r sex, 45 years or older , who are at [facility] sk for color ectal cance r (CRC) . Colog uard has been appro madhav for use by the U.S. FDA. The perfo rmanc e of Colog uard was estab lishe d in a cross secti onal study of [facility] adult s aged 50-84 . Colog uard perfo rmanc e in patie nts ages 45 to 49 years was estim ated by lawson-g jovani bud sis of near- age group s. Colon oscop ies perfo rmed for a posit lamin resul t may find as the most clini connie signi fican t lesio n: color ectal cance r [4.0% ], advan indy adeno ma (incl uding sessi le anderson myah polyp s great er than or equal to 1cm diame ter) [20%] or non- advan indy adeno ma [31%] ; or no color ectal neopl adelaide [45%] . These estim ates are deriv ed from a prosp ectiv e cross -sect ional scree jeanen study of 0 indiv idual s at [facility] risk for color ectal cance r who were scree lisa with both Colog uard and colon oscop y. (Wilder Kent et al, N Engl J Med 2014; 370(1 4):12 86-12 97.) Colog uard may produ ce a false negat lamin or false posit lamin resul t (no color ectal cance r or preca ncero us polyp prese nt at colon oscop y follo w up). A negat lamin Colog uard test resul t does not guara ntee the absen ce of CRC or advan indy adeno ma (pre- cance r). The curre nt Colog uard scree jeanne inter thania is every 3 years . (Amer ican Cance r Socie ty and U.S. Multi -Soci ety Task Force ). Colog uard perfo rmanc e data in a 0 patie nt pivot al study using colon oscop y as the refer ence metho d can [facility]es [facility] loc[facility] ion: www.e xactl abs.c om/re sulelijah . Addit ional descr iptio n of the Colog uard test proce ss, warni ngs and preca ution s can be found at www.ruth cast.ruth om. Not Available [facility] (Cologuard Orders Only) [address], [place], [address], 09/27/2023 09:46:42 10/09/19 24 10/09/2023 HbA1c (hemo globi n A1c), blood HbA1c 6.4% Not Available In-Office Order Internal Use Only DO Not Attach Compendium DO Not Attach Compendium, Do Not Delete/merge, [id number] 10/09/2023 15:42:21 07/25/20 23 07/25/2023 elect maddison ding am, ronnie ne ECG, 12 leads min No observ ation record ed. [facility] ([facility]) [facility], [place], [address], 07/27/2023 10:38:27 08/28/19 24 08/14/2023 US, echoc ardio gram, trans thora cic, compl ete No observ ation record ed. [facility] [address], [place], [address], 08/29/2023 17:03:32 08/24/20 24 08/23/2024 CT, abdom en + pelvi s, w/o contr ast No observ ation record ed. [place] [id number] [facility] [address], [place], [address], 10/01/2024 09:38:18 Result Notes None recorded. Problems Name Problem SNOMED Code Status Onset Date Resolution Date Notes Provider Name and Address Organization Details Recorded Time Congestive heart failure 86513543 Active 2017 AUGUSTIN Powell [facility] 8 10:25:41 Diabetes mellitus 15513405 Active 2017 AUGUSTIN Powell - [facility] 8 10:25:48 Essential hypertensi on 96620856 Active 2017 FRANCI MARTINS Attn: Jessica g,[address] [place], [address], [place] - [facility] 3 15:55:41 Snoring 94320399 Active 2017 Beka giron, [place] - [facility] 8 10:26:00 Overweight 464596235 Active 2017 Bek[place] [facility] 8 10:26:07 Obstructiv e sleep apnea syndrome 32705104 Active 2018 Is supposed to have a repeat sleep study because previous one was inconclusi ve. Pt is in the process of scheduling the study Tracy giron, [place] - [facility] 9 19:33:15 Ulcer of toe 536995291 Active 2018 Tracy giron[place] - [facility] 9 14:19:30 Type 2 diabetes mellitus without complicati on 716027956 Active 2022 FRANCI MARTINS Attn: Jessica gupta,[address] [place], [address], [place] [facility] 3 15:55:46 Obesity 754085150 Active 2022 FARNCI MARTINS Attn: Jessica gupta,[address] [place], [address], [place] [facility] 4 15:59:40 Hyperlipid emia 20582031 Active 2022 FRANCI MARTINS Attn: Jessica gupta,[address] [place], [address], [place] [facility] 3 10:29:55 Screening for malignant neoplasm of colon Active 2023 cologuard negative 08/2023, repeat 2026 FRANCI MARTINS Attn: Jessica gupta,[address] [place], [address], [place] [facility] 4 09:52:12 Diastolic dysfunctio n 9275091 Active 2023 FRANCI MARTINS Attn: Jessica gupta,[address] [facility], [place], [address], [place] [facility] 4 08:21:39 Prediabete s 800677811 Active 2023 FRANCI MARTINS Attn: Jessica gupta,[address] [facility], [place], [address], [place] [facility] 4 08:22:08 End stage renal failure on dialysis 462146436 Active 2024 FRANCI MARTINS Attn: Jessica gupta,[address] [facility], [place], [address], [place] - [facility] 5 10:10:54 Problem Notes None recorded. Medical Equipment None Reported. Allergies Allergen ID Allergen Name Allergen Category Reaction Reaction Severity Criticality Documentation Date Start Date Code Code System Note Provider Name and Address Organization Details Recorded Time 443842 lisinopri l medicatio n cough moderate Not available 07/15/2018 98539 RxNorm BETY Ferrell, [place] - [facility] 8 09:47:46 Medications Name Sig Start Date Stop Date Status Note LastModified by Organization Details LastModified Time losartan 50 mg tablet TAKE 1 TABLET BY MOUTH EVERY DAY 07/24 completed Not Available Not Available Not Available isosorbide dinitrate 10 mg tablet 07/24 completed Not Available Not Available Not Available atorvastati n 40 mg tablet Take 1 tablet every day by oral route at bedtime for 90 days. 2024 active Not Available Not Available Not Avai lable carvedilol 25 mg tablet Take 2 tablets twice a day by oral route. 01/28 completed Not Available Not Available Not Available carvedilol 12.5 mg tablet 04/01 completed Not Available Not Available Not Available bumetanide 2 mg tablet 07/24 completed Not Available Not Available Not Available azithromyci n 250 mg tablet FOLLOW PACKAGE DIRECTION S 10/09 completed Not Available Not Available Not Available hydralazine 25 mg tablet 07/24 completed Not Available Not Available Not Available aspirin 81 mg tablet,toby yed release Take 1 tablet every day by oral route as directed for 30 days. active Not Available Not Available No t Available glimepiride 1 mg tablet Take 1 tablet twice a day by oral route with meals. 04/01 completed Not Available Not Available Not Available furosemide 80 mg tablet TAKE 2 TABLETS BY MOUTH TWICE DAILY ON NON-DIALY DAYS active Not Available Not Available No t Available amlodipine 10 mg tablet 07/24 completed Not Available Not Available Not Available hydralazine 100 mg tablet TAKE 1 TABLET BY MOUTH THREE TIMES DAILY active Not Available Not Available No t Available calcitriol 0.5 mcg capsule active Not Available Not Available Not Available metformin 1,000 mg tablet TAKE 1 TABLET BY MOUTH TWICE DAILY WITH MEALS 07/24 completed Not Available Not Available Not Available hydralazine 50 mg tablet TAKE 1 TABLET THREE TIMES A DAY 03/20 completed Not Available Not Available Not Available furosemide 20 mg tablet 07/24 completed Not Available Not Available Not Available metoprolol succinate ER 25 mg tablet,exte nded release 24 hr TAKE 1 TABLET BY MOUTH EVERY DAY active Not Available Not Available No t Available levofloxaci n 750 mg tablet 04/01 completed Not Available Not Available Not Available losartan 100 mg tablet TAKE 1 TABLET BY MOUTH EVERY DAY active Not Available Not Available No t Available doxycycline hyclate 100 mg tablet 04/01 completed Not Available Not Available Not Available dorzolamide 2 % eye drops INSTILL 1 DROP INTO RIGHT EYE TWICE DAILY 03/20 completed Not Available Not Available Not Available tobramycin 0.3 %-dexametha sone 0.1 % eye drops,suspe nsion SHAKE LIQUID AND INSTILL 1 DROP IN RIGHT EYE FOUR TIMES DAILY. START DROPS AFTER SURGERY 03/20 completed Not Available Not Available Not Available Folbee Plus 5 mg tablet TAKE 1 TABLET BY MOUTH DAILY active Not Available Not Available No t Available Accu-Chek Zina Plus test strips Use one twice daily to test blood sugar 07/24 completed Not Available Not Available Not Available Eliquis 5 mg tablet TAKE 1 TABLET BY MOUTH EVERY 12 HOURS active Not Available Not Available No t Available Jardiance 10 mg tablet TAKE 1 TABLET BY MOUTH DAILY 07/24 completed Not Available Not Available Not Available Jardiance 25 mg tablet Take 1 tablet every day by oral route. 07/24 completed Not Available Not Available Not Available baclofen 5 mg tablet 01/28 completed Not Available Not Available Not Available Vitals Date Recorded Systolic blood pressure Diastolic blood pressure Provider Name and Address Organization Details Last Updated DateTime 10/09/2023 142 mm[Hg] 75 mm[Hg] FRANCI MARTINS Attn: [employer] [place], [address], [place] 10/09/2023 15:37:06 Date Recorded Body height Body mass index (BMI) Body weight Oxygen saturation Oxygen saturation in Arterial blood by Pulse oximetry Heart rate Respiratory rate Systolic blood pressure Diastolic blood pressure Provider Name and Address Organization Details Last Updated DateTime 180.34 cm 34.4 kg/m2 639710. 32 g 96 % 96 % 71 /min 16 /min 125 mm[Hg] 51 mm[Hg] Francoise Fair [place] [facility] [place] 4 15:10:14 Date Recorded Systolic blood pressure Diastolic blood pressure Provider Name and Address Organization Details Last Updated DateTime 01/28/2025 110 mm[Hg] 70 mm[Hg] FRANCI MARTINS Attn: [employer] [place], [address], [place] 01/28/2025 16:04:51 Date Recorded Body height Body mass index (BMI) Body weight Oxygen saturation Oxygen saturation in Arterial blood by Pulse oximetry Heart rate Respiratory rate Systolic blood pressure Diastolic blood pressure Provider Name and Address Organization Details Last Updated DateTime 5 180.34 cm 36.2 kg/m2 621079. 52 g 97 % 97 % 69 /min 17 /min 89 mm[Hg] 55 mm[Hg] Alyssa Greenwood [place] [facility] 5 15:34:20 Date Recorded Systolic blood pressure Diastolic blood pressure Provider Name and Address Organization Details Last Updated DateTime 03/20/2024 118 mm[Hg] 70 mm[Hg] FRANCI MARTINS Attn: [employer] [place], [address], [place] 03/20/2024 12:08:19 Date Recorded Body height Body mass index (BMI) Body weight Oxygen saturation Oxygen saturation in Arterial blood by Pulse oximetry Heart rate Respiratory rate Systolic blood pressure Diastolic blood pressure Provider Name and Address Organization Details Last Updated DateTime 4 180.34 cm 33.6 kg/m2 383264. 76 g 97 % 97 % 99 /min 20 /min 147 mm[Hg] 67 mm[Hg] Francoise Fair MA [facility] 4 11:47:17 Date Recorded Systolic blood pressure Diastolic blood pressure Provider Name and Address Organization Details Last Updated DateTime 07/24/2023 140 mm[Hg] 90 mm[Hg] FRANCI MARTINS Attn: [employer] [place], [address], [facility] 07/24/2023 15:48:49 Date Recorded Body height Body mass index (BMI) Body weight Oxygen saturation Oxygen saturation in Arterial blood by Pulse oximetry Heart rate Respiratory rate Body temperature Systolic blood pressure Diastolic blood pressure Provider Name and Address Organization Details Last Updated DateTime 3 180.34 cm 36.1 kg/m2 680665. 42 g 97 % 97 % 61 /min 16 /min 98 [degF] 144 mm[Hg] 90 mm[Hg] Moni Rankin CMA [facility] 3 14:57:03 Date Recorded Systolic blood pressure Diastolic blood pressure Provider Name and Address Organization Details Last Updated DateTime 08/24/2023 150 mm[Hg] 70 mm[Hg] FRANCI MARTINS Attn: [employer] [place], [address], [facility] 08/24/2023 15:54:26 Date Recorded Body height Body mass index (BMI) Body weight Oxygen saturation Oxygen saturation in Arterial blood by Pulse oximetry Respiratory rate Body temperature Heart rate Systolic blood pressure Diastolic blood pressure Provider Name and Address Organization Details Last Updated DateTime 3 180.34 cm 36.1 kg/m2 532143. 42 g 95 % 95 % 18 /min 98.7 [degF] 66 /min 150 mm[Hg] 88 mm[Hg] Moni Edwards MA [facility] 3 15:43:22 Social History Question Answer Notes LastModified by Organizat ion Details LastModified Time Tobacco Smoking Status Never Smoker BETY Ferrell null, [place] 07/15/2018 09:47:53 What Was The Date Of Your Most Recent Tobacco Screening? 01/28/2025 Information not available 01/28/2025 Has Tobacco Cessation Counseling Been Provided? Yes [email or web address] Information not available 10/09/2023 On What Date Was Tobacco Cessation Counseling Provided? 01/28/2025 Information not available 01/28/2025 Sex: Unknown Functional Status Question Answer Note LastModified by Organization D etails LastModified Time Do you or have you ever used any other forms of tobacco or nicotine? No [email or web address] Information not available 07/24/2023 Mental Status None recorded. Family History Relationship Description Onset Age of this Age Resolved Age Notes LastModified by Organization Details LastModified Time Father No current problems or disability [email or web address] Not available 01/17 11:43:14 Mother No current problems or disability [email or web address] Not available 01/17 11:43:14 Medical History No medical history recorded. Immunizations Vaccine Type Date Status Note Provider Nam e and Address Organization Details Recorded Time Influenza, split virus, quadrivalent, PF 06/28/2017 completed Not Available [facility] 14:10:35 Past Encounters Encounter ID Performer Location Encounter Start Date Encounter Closed Date Diagnosis/Indication Diagnosis SNOMED-CT Code Diagnosis ICD10 Code Diagnosis Note [id number] Rose Quintero MD [facility] [address] [address] 07/15/2018 09:35:12 07/16/2018 16:29:51 Congestive heart failure 04393813 I50.9 HFpEF, new diagnosis earlier this month (approxima tely 06/28/18) during hospitaliz ation for acute exacerbati on. Echo showed severe diastolic dysfunctio n and severe pHTN. Patient appears to be at dry weight at this time, which is 270 lbs on review of his records from home (home weight and bp logs).- Following with Cardiology , next visit 07/16/18; will discuss outpatient catheteriz ation- Reinforced importance of controllin g bp fdc to prevent morbidity/ mortality- Continue DWs, bp log, and to limit sodium and fluid intake daily- Restart ARB with Losartan 50 daily; continue Coreg 12.5 BID;- Continue Lasix daily (primarily per Cards), recommende d patient decrease dosage to 20 mg daily given he is euvolemic- Pulm referral for sleep study and CPAP titration; pt to call [facility] medical group- Discussed weight management - Labs UTD- RTC for blood pressure check, updated labs, and to ensure Pulm referral. Chronic di astolic heart failure 322804368 I50.32 See above. Obstructiv e sleep apnea syndrome 63837588 G47.33 Per , pt has underlying uncontroll ed sleep apnea.- Needs sleep study and CPAP titration- Emphasized blood pressure control Essential hypertension 59953561 I10 Chronic. Goal <140/90 per JNC 8 guidelines (likely even tighter, 130/85 given comorbid CHF and DM). Not at goal during visit.- Add Losartan as above- Discussed lifestyle modificati ons- RTC for bp check. Snoring 63171549 R06.83 Underlying JUJU. Pulm referral as above. Overweight 627444366 E66 .3 Type 2 dino betes mellitus without complication 195281485 E11.9 Chronic. A1c checked during hospitaliz ation (~ 8) and resulted at approximat deandre 9.5% indicating uncontroll ed. Patient refusing to begin insulin on discharge from hospital and Jardiance was added to his regimen in addition to maximizati on of Metformin. - Continue Metformin 1000 BID, Jardiance daily; continue Atorvastat in and Losartan; consider addition of baby asa at future visit.- Labs UTD during hospitaliz ation, which also showed pt's Cr in the area of ~1.5-1.6 (uncertain baseline or if DORY related to CHF exacerbati on); patient may well have underlying CKD given fdc uncontroll ed HTN and DM- Foot exam at future visit; dilated eye exam yearly- Pneumovax at future visit if never received- Pt refuses flu vaccine [id number] Rose Quintero MD [facility] [address] [address] 09/03/2018 13:40:40 09/09/2018 09:40:29 Congestive heart failure 83770973 I50.9 HFpEF, new diagnosis (approxima tely 06/28/18) during hospitaliz ation for acute exacerbati on. Echo showed severe diastolic dysfunctio n and severe pHTN. Patient appears to be at dry weight at this time, which is 265 lbs on review of his records from home (home weight and bp logs) and Cards visit. Home bp log running largely 120s-130s/ 80s.- Continue to follow with Cardiology regularly. - Reinforced importance of controllin g bp fdc to prevent morbidity/ mortality. - Continue DWs (will call Cards office if change by more than 5 lbs in 24 hour period), bp log, and to limit sodium and fluid intake daily- Continue Losartan 50 daily; continue Coreg 12.5 BID.- Continue Lasix daily (primarily per Cards)- Pulm referral pending for sleep study and CPAP titration; appt late October 2018.- Discussed weight management - Recheck CMP to assess for component of possible CKD- RTC approximat deandre 2-3 months or prn. Essential hypertension 11399017 I10 Chronic. Goal <140/90 per JNC 8 guidelines (likely even tighter, 130/85 given comorbid CHF, DM, and likely even underlying CKD). At goal on review of home bp log.- Continue above agents; can uptitrate ARB prn- Discussed lifestyle modificati ons- Check urine protein Multiple complications due to type 2 diabetes mellitus 222490859 E11.8 Chronic. A1c checked during hospitaliz ation (~ 8) and resulted at approximat deandre 9.5% indicating uncontroll ed. Patient refusing to begin insulin on discharge from hospital and Jardiance was added to his regimen in addition to maximizati on of Metformin. - Continue Metformin 1000 BID, Jardiance daily; continue Atorvastat in and Losartan; consider addition of baby asa at future visit. - Recheck A1c to assess trend.- Labs UTD during hospitaliz ation, which also showed pt's Cr in the area of ~1.5-1.6 (uncertain baseline or if DORY related to CHF exacerbati on); patient may well have underlying CKD given fdc uncontroll ed HTN and DM - Foot exam at future visit; dilated eye exam yearly - Pneumovax at future visit if never received [id number] Rose Quintero MD [facility] [address] [facility] [address] [place] [address] 11/26/2018 14:02:46 11/28/2018 09:42:49 Type 2 diabetes mellitus without complication 537717535 E11.9 Chronic. Most recent A1c 09/03/18 was 8.1% and improved compared to during hospitaliz ation 06/2018. Patient refused to begin insulin on discharge from hospital and Jardiance was added to his regimen in addition to maximizati on of Metformin. In 09/2018, Glimepirid e added. [facility] A1c goal < 7.0%.- Continue Metformin 1000 BID, Glimepirid e, and Jardiance daily; continue Atorvastat in and Losartan; consider addition of baby asa at future visit.- Labs UTD during hospitaliz ation, which also showed pt's Cr in the area of ~1.5-1.6, which appears to be baseline.- Foot exam at future visit; dilated eye exam yearly- Pneumovax at future visit if never received- Pt refuses flu vaccine Obstructiv e sleep apnea syndrome 09985732 G47.33 Per , pt has underlying uncontroll ed sleep apnea. Consistent with patterns observed during hospitaliz ation.- Has had Pulm visit; plan for sleep study later this month. CPAP and titration per study.- Reinforced blood pressure control Congestive heart failure 62654240 I50.9 HFpEF, new diagnosis (yuan becerra 06/28/18) during hospitaliz ation for acute exacerbati on. Echo showed severe diastolic dysfunctio n and severe pHTN. Patient appears to be at dry weight at this time, which is 265 lbs on review of his records from home (home weight and bp logs) and Cards visit. Home bp log running largely at goal.- Continue to follow with Cardiology regularly. - Reinforced importance of controllin g bp fdc to prevent morbidity/ mortality. - Continue DWs (will call Cards office if change by more than 5 lbs in 24 hour period), bp log, and to limit sodium and fluid intake daily- Continue Losartan 50 daily; continue Coreg 12.5 BID.- Continue Lasix daily- Sleep study pending.- Discussed weight management - RTC approximat deandre 2-3 months or prn. Chronic ki dney disease 730469019 N18.9 Patient has developed CKD, approximat e stage IIIa, based on multiple BMPs between late 2017 into 2019. Likely related to fdc uncontroll ed BP and DM prior to regular physician visits. Updated labs have since resulted, show profound albuminuri a.- Nephro referral placed previously , pending; provided pt with informatio n for Dr. Urbina and instructed him to f/u on referral to make appointmen t.- Control HTN and DM- Couldn't tolerate acei; On ARB Essential hypertension 94295451 I10 Chronic. Goal <140/90 per JNC 8 guidelines (likely even tighter, 130/85 given comorbid CHF, DM, and CKD). At goal on review of home bp log (110s-120s /70s-80s on home log). May have component of white coat HTN.- Continue above agents- Discussed lifestyle modificati ons- Check urine protein [id number] Rose Quintero MD [facility] [address] [facility] [address] [place] [address] 01/17/2019 09:28:56 01/21/2019 11:25:52 Type 2 diabetes mellitus without complication 528303787 E11.9 Chronic. Most recent A1c 09/03/18 was 8.1% and improved compared to during hospitaliz ation 06/2018. Patient refused to begin insulin on discharge from hospital and Jardiance was added to his regimen in addition to maximizati on of Metformin. In 09/2018, Glimepirid e added. [facility] A1c goal < 7.0%.- Check updated A1c. - Continue Metformin 1000 BID, Glimepirid e, and Jardiance daily; continue Atorvastat in and Losartan.- Labs UTD during hospitaliz ation, which also showed pt's Cr in the area of ~1.5-1.6, which appears to be baseline.- Foot exam performed and wnl, next due 12/2019; advised yearly dilated eye exam Essential hypertension 30096022 I10 Chronic. Goal <140/90 per JNC 8 guidelines (likely even tighter, 130/85 given comorbid CHF, DM, and CKD). At goal on review of home bp log (110s-120s /70s-80s on home log).- Continue above agents- Discussed lifestyle modificati ons Congestive heart failure 80740092 I50.9 HFpEF, new diagnosis (approxima tely 06/28/18) during hospitaliz ation for acute exacerbati on. Echo showed severe diastolic dysfunctio n and severe pHTN. Home bp log running largely at goal.- Continue to follow with Cardiology regularly. - Reinforced importance of controllin g bp fdc to prevent morbidity/ mortality. - Continue DWs (will call Cards office if change by more than 5 lbs in 24 hour period), bp log, and to limit sodium and fluid intake daily- Continue Losartan 50 daily; continue Coreg 25 BID.- Continue Lasix daily- Sleep study performed last month; patient states he has upcoming repeat visit with Pulm to discuss results and considerat ion of CPAP.- Discussed weight management - RTC approximat deandre 3 months or prn. Chronic ki dney disease stage 3 183415148 N18.3 Confirmed on multiple BMPs between 06/2018 during hospitaliz ation and on repeat testing through early 2018. Also with albuminuri a suggestive of possible nephrotic disease.- Nephro referral placed and pending; discussed with patient at previous visit though he was unable to call to schedule appt- Reprinted referral informatio n and gave to pt; explained importance of establishi ng- Pt states he will call Dr. Urbina's office to establish in the next week.- Continue ARB Obstructiv e sleep apnea syndrome 93644525 G47.33 Reports severe JUJU on recent sleep study. Has Pulm visit next week to discuss further, likely initiate CPAP. [id number] Justyn Calle MD [facility] [address] [address] 04/01/2019 13:35:22 04/02/2019 09:52:35 Type 2 diabetes mellitus without complication 641073999 E11.9 Chronic. Most recent A1c on 03/17/2019 was 8.7 which is increased from 08/2018. [facility] A1c goal < 7.0%-Pt was started on Glimeperid e in 09/2018 but reports not taking medication in the past month because he ran out. Pt reports episodes of hypoglycem ia 1-2x/week with finger sticks in the 50's. Given episodes of hypoglycem ia will discontinu e Glimeperid e-Discusse d with patient that the next steps for better glucose control would be adding insulin if A1c does not improve. Pt is in agreement with plan-Mor nue Metformin 1000mg BID-Increa se Jardiance from 10mg to 25mg-mor nue Atorvastat in and Losartan - No lipids on record so will order for 3 months along with repeat A1c- Next foot exam due 12/2019; advised yearly dilated eye exam-Will refer to Podiatry for diabetic foot careRTC in 3 months Congestive heart failure 14157590 I50.9 HFpEF, diagnosed 06/28/18-Ec ho showed severe diastolic dysfunctio n and severe pHTN. Home bp log running largely at goal.- Continue to follow with Cardiology regularly. - Reinforced importance of controllin g bp fdc to prevent morbidity/ mortality. - Continue Losartan 50 daily; continue Coreg 25 BID; continue Amlodipine 10mg- Continue Lasix daily- Discussed weight management - RTC approximat deandre 3 months or prn. Essential hypertension 48995730 I10 Chronic. Goal <140/90 per JNC 8 guidelines (likely even tighter, 130/85 given comorbid CHF, DM, and CKD). As per patient home BP's are at goal (110s-120s /70s-80s) but always elevated when he goes to appointmen ts-While patient was recently admitted Amlodipine 10mg was added for blood pressure control-co ntinue Amlodipine 10mg and Losartan 50mgRTC in 3 months Swelling o f wrist joint 746272026 M25.439 Pt reports 2 month history of swelling in the left wrist and 1 month history of swelling in the left hand (sparing the digits)-Ve nous doppler of LT upper extremity to rule out venous thrombosis Ulcer of toe 438867979 L 97.509 Acute, improvingP t was recently admitted from 03/16-03/17 for concern for osteomyeli tis. MRI was done and negative for osteo. Pt completed 14 day course of Levaquin and Doxycyline -Wound improving- Pt was supposed to follow up with wound care at their clinic but missed the call to schedule appointmen t. Pt states he will follow up and make appointmen t later today [id number] Casey wallace MD [facility] [address] [place] [address] 07/24/2023 14:44:36 07/24/2023 16:18:27 Essential hypertension 24568625 I10 BP 140s/90s in officedid not take meds todayon carvedilol and hydralazin e Upper resp iratory infection 32348096 J06.9 x3 dayscough and rhinorrhea not taking any medsno feverssick contacts at [facility] last week[facility]- nltrial coricidin HBP Type 2 dino betes mellitus without complication 747964285 E11.9 diagnosed age 41BS at home 130s-200sa 1c today 6.2no medsre-love ck cholestero l Chronic ki dney disease stage 4 [address]10972 [address]18[address] Reis hydralazin e, calcitriol and furosemide check CMP Obesity 730962671 E66.9 BMI 36.1routin e labs Pre-surger y evaluation 755741925 Z01.818 has vitrectomy with membrane peel poss gas poss oil laser kenalog cataract extraction with Dr. Everett on 07/31/23pt has h/o heart failurenee ds EKGdiscuss ed with Rose Courtney at [facility], will not be medically optimizing pt for surgery until he has echo completed, if echo is abnormal, needs referral to cardiology Diastolic dysfunction 35 89775 I51.9 per OV note 04/01/2019: HFpEF, diagnosed 06/28/18-Ec ho showed severe diastolic dysfunctio n and severe pulmonary HTN repeat echo, if abnormal refer to cardiology Screening for malignant neoplasm of colon 840720865 Z12.11 done at age 39due for repeat Onychomyco sis of toenails 191486269 B35.1 requesting referral to podiatry Depression screening 171 889329 Z13.31 0 [id number] Casey wallace MD [facility] [address] [place] [address] 08/24/2023 15:18:07 08/29/2023 10:29:08 Essential hypertension 61562864 I10 08/24/23:B P in office 150/70, 150/88BP 118/68 at hometook all meds todayclaim s to have white coat syndrome 07/24/23:B P 140s/90s in officedid not take meds todayon carvedilol and hydralazin e Pre-surger y evaluation 257142183 Z01.818 08/24/23:h as surgery scheduled 09/26/23 07/24/23:h as vitrectomy with membrane peel poss gas poss oil laser kenalog cataract extraction with Dr. Everett on 07/31/23pt has h/o heart failurenee ds EKGdiscuss ed with Rose Courtney at [facility], will not be medically optimizing pt for surgery until he has echo completed, if echo is abnormal, needs referral to cardiology Diastolic dysfunction 35 31532 I51.9 08/24/23:p er pt, saw Dr. Mayfield last week and was cleared for eye surgeryhav e not received echo results 07/24/23:p er OV note 04/01/2019: HFpEF, diagnosed 06/28/18-Ec ho showed severe diastolic dysfunctio n and severe pulmonary HTNrepeat echo, if abnormal refer to cardiology Chronic ki dney disease stage 4 349029179 N18.4 08/24/23:h as appt 08/202307/24/23:f ollowing with Dr. Reis hydralazin e, calcitriol and furosemide check CMP- Cr 5.62, eGFR 11, called pt to notify him of results, pt contacted nephrology and pt has f/u appt 08/2023 Screening for malignant neoplasm of colon 902467408 Z12.11 colonoscop y at age 39due for repeatorde red cologuard Onychomyco sis of toenails 763299744 B35.1 pt will schedule podiatry appt Depression screening 171 811748 Z13.31 0 [id number] Casey wallace MD [facility] [address] [place] [address] 10/09/2023 15:06:19 10/09/2023 15:58:15 Essential hypertension 69548738 I10 10/09/23:- 115/56 this morning before meds- 130/70s at home most days- BP in office 125/51, recheck 142/75- med complaint :BP in office 150/70, 150/88BP 118/68 at hometook all meds todayclaim s to have white coat syndrome 07/24/23:B P 140s/90s in officedid not take meds todayon carvedilol and hydralazin e Diastolic dysfunction 35 55826 I51.9 08/24/23:p er pt, saw Dr. Mayfield last week and was cleared for eye surgeryhav e not received echo results 07/24/23:p er OV note 04/01/2019: HFpEF, diagnosed 06/28/18-Ec ho showed severe diastolic dysfunctio n and severe pulmonary HTNrepeat echo, if abnormal refer to cardiology Chronic ki dney disease stage 4 411948475 N18.4 10/09/23:h as appt with Dr. Ibarra next month 08/24/23:h as appt 08/202307/24/23:f ollowing with Dr. 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 Everett on 07/31/23pt has h/o heart failurenee ds EKGdiscuss ed with Rose Courtney at [facility], will not be medically optimizing pt for surgery until he has echo completed, if echo is abnormal, needs referral to cardiology [id number] Casey wallace MD [facility] [address] [facility] [place] [address] 03/20/2024 11:42:31 03/20/2024 12:12:59 Essential hypertension [id number] I10 03/20/24: BP 147/67, 118/70 10/09/23:- 115/56 this morning before meds- 130/70s at home most days- BP in office 125/51, recheck 142/75- med complaint :BP in office 150/70, 150/88BP 118/68 at hometook all meds todayclaim s to have white coat syndrome 07/24/23:B P 140s/90s in officedid not take meds todayon carvedilol and hydralazin e End stage renal failure on dialysis [id number] N18.[address] Jacobo, Nephrologrust [facility] ar[facility] peritoneal dialysis Prediabetes [id number] R7 3.03 6.5% inpatientf /u in 2 months for a1c 10/09/23- last a1c 6.2- a1c today 6.4- will recheck a1c again in 6 months Fracture o f thoracic spine [id number] S22.009A T11 fracture from [facility] 03/03/24 who rec'd back brace and will repeat XRs in 6 wkstaking baclofen and tylenol 250 TID Diastolic dysfunction 35 77837 I51.9 03/20/24: has appt with Dr. Mayfield 03/27/24 08/24/23:p er pt, saw Dr. Mayfield last week and was cleared for eye surgeryhav e not received echo results 07/24/23:p er OV note 04/01/2019: HFpEF, diagnosed 06/28/18-Ec ho showed severe diastolic dysfunctio n and severe pulmonary HTNrepeat echo, if abnormal refer to cardiology Atrial fibrillation 4943 6004 I48.91 developed while inpatientr ate controlled on metoprolol and eliquishas appt with cardio 03/27/24 Obesity 793655147 E66.8 BMI 33.1 Hospital i npatient stay within past 30 days [id number] 106 Z76.89 Admitted to [facility] from 01/22/24 to 6/25/24Hos pital Course: Labs notable- BUN 135, Cr 12.2, CO 17, AG 22, CK 9422, AST/ALT 261/83, DORY on CKD 5- acute renal failure, hyperphosp hatemia, hyperkalem ia, chronic anemia due to CKD, T11 fracture from fall, T2DM a1c 6.5% inpatient, A fib with RVR noted in house rate controlled with BB and apixaban 5 BID Depression screening 171 242159 Z13.31 0 [id number] Jamie Valle MD [facility] [address] [place] [address] 01/28/2025 14:09:17 01/28/2025 16:07:56 Hyperlipidemia 02685580 E78.5 ASCVD risk 24.2%refil l Prediabetes 736897089 R7 3.03 01/28/25: re-check today 6.5% inpatientf /u in 2 months for a1c 10/09/23- last a1c 6.2- a1c today 6.4- will recheck a1c again in 6 months Screening for malignant neoplasm of colon 699136526 Z12.11 cologuard negative 09/07/23nee ds colonoscop y for kidney transplant Long-term current use of drug therapy 056873502 Z79.899 routine labs Depression screening 171 625704 Z13.31 2 End stage renal failure on dialysis 931908359 N18.[address] Angeles dialysis started 01/2024 Diastolic dysfunction 35 33021 I51.9 01/28/25: follows with Dr. Mayfield, last visit 09/202403/20/24: has appt with Dr. Mayfield 03/27/24 08/24/23:p er pt, saw Dr. Mayfield last week and was cleared for eye surgeryhav e not received echo results 07/24/23:p er OV note 04/01/2019: HFpEF, diagnosed 06/28/18-Ec ho showed severe diastolic dysfunctio n and severe pulmonary HTNrepeat echo, if abnormal refer to cardiology Health Concerns Section Related Observation LastModified by Organization Detai ls LastModified Time None Recorded Concern Status LastModified by Organization Details LastModified Time None Recorded Advance Directives Directive None Recorded Payers Insurance Date Sequence Insurance Name Policy Number Policy Junior Covered Member ID Junior Member ID Guarantor Name 01/28/2025 1 [place] [id number] Gibson Maloney [id number] Gibson Maloney 01/28/2025 1 [place] [id number] Gibson Maloney [id number] Gibson Maloney 01/29/2025 1 [facility] (MEDICARE REPLACEMENT/A DVANTAGE - PPO) [id number] Gibson Maloney [id number] Gibson Maloney Notes Date Note Type Note Provider Name and Address Organization Details Recorded Time 07/24/2023 text/html pt is a 53 y/o M with a hx of DM, CHF, HTN, chronic kidney disease, and sleep apnea. Pt is in the office to establish care. He is currently seeing a foam cutting supervisor for CKD. Pt states that the foam cutting supervisor is the one prescribing his medications. Last saw PCP 4 yrs ago. Mr. Maloney states that he has been complaint on all his medications. Pt monitors his BG at home at they have been all under 200, around the 130s. Patient also monitors his BP at home at it is usually around 117/70. Patient admitted to not taking his medication due to not knowing what labs were going to get draw today. Pt does not have any questions or concerns at this time. Pt requesting eye surgery clearance and provided forms. FRANCI MARTINS Attn: Accounting,[address] [facility], [place], [address], [facility] 07/25/2023 15:04:36 08/24/2023 text/html Pt presents for 1 mo f/u. States that he has eye surgery scheduled for 09/26/23 at [facility]. He saw Dr. Mayfield (Cardiology) last week who cleared him for surgery. FRANCI MARTINS Attn: Accounting[address] [facility], [place], [address], [facility] 08/28/2023 18:01:09 10/09/2023 text/html Patient is a 53 y/o M, with a medical history of CKD, HTN, hyperlipidemia, and DM2. Presents to the office today for follow up on chronic diseases. Patient states he had R eye surgery on 09/26/23 for cataract removal and retinal attachment. 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 Followed up with surgeon and surgeon told him it is normal, and blindness and pain will resolve in about a month. Has an appointment with surgeon in October. Usingchamomile tea, celery seeds to treat pain, states that it works well. CKD:- Nephrology appt next month HTN:- med complaint- 115/56 this morning before meds- 130/70s at home most days DM2:- checked his blood sugar this morning, 125 fasting Patient says he will drop off paper work to get transportation to the clinic for his appointments. Denies fever, chills, chest pain, SOB, n/v/d, abd pain, dizziness, weakness, or headaches. FRANCI MARTINS Attn: Accounting, [address] , [place], [address], [facility] 10/11/2023 08:23:40 03/20/2024 text/html Pt presents for hospital f/u. Reports that 2 months ago he passed out at home, woke up after 1 hr, and called his who called ambulance. Pt was admitted for 1 mo due to renal failure and A fib. Endorse that he woke up in the hospital on dialysis machine. He is now on dialysis 3x per week and is starting peritoneal dialysis. States I don't know why I'm here, you can't help me with anything they just told me to follow-up. FRANCI MARTINS Attn: Accounting, [address] , [place], [address], [place] [facility] 03/21/2024 15:42:00 01/28/2025 text/html Patient presents for annual exam and med refills. Reports that he is on dialysis Sunday, Sunday, and Sunday, and follows with Dr. Grajeda. Patient also follows with Dr. Mayfield (Cardiology). FRANCI MARTINS Attn: Accounting, [address] , [place], [address], [place] [facility] 01/30/2025 10:13:43
--- OUTSIDE RECORDS SUMMARY | 2025-02-23 13:51 | XMS_ITS | Encounter Summary ---
Author Organization [facility] Address [facility] [place] [address] Care Team Providers Care Combatant Diver Qualified Name Role Phone Stan Cox MD Unavailable [phone] Beka Aj DO Primary Care Provider [phone] Encounter Details Date Type Department Care Team (Late st Contact Info) Description 10/25/2019 Hospital Follow-up Call [facility] Telemetry Unit [address] [place] [address] Sybil Robles, Junior Network Administrator Social History Tobacco Use Types Packs/Day Years Used Date Smoking Tobacco: Never Smokeless Tobacco: Never Alcohol Use Standard Drinks/Week Comments No 0 (1 standard drink = 0.6 oz pur e alcohol) AUDIT-C Answer Date Recorded Frequency of Alcohol Consumption Never 06/28/2018 Average Number of Drinks Not on file 018 Frequency of Binge Drinking Not on file 09/2017 Sex and Gender Information Value Date Recorded Sex Assigned at Not on file Legal Sex Male 6:23 PM CDT Gender Identity Not on file Sexual Orientation Not on file Occupation Industry Job Start Date Job End Date Not on file Not on file Not on file Not on file documented as of this encounter Functional Status * RETIRED Are you deaf or do you have serious difficulty hearing Answer Date of Assessment Author Status No 10/15/2019 11:41 PM POST GRADUATE INTERN Acti ve * RETIRED Are you blind or do you have serious difficulty seeing, even when wearing glasses? Answer Date of Assessment Author Status No 10/15/2019 11:41 PM POST GRADUATE INTERN Acti ve * Do you have serious difficulty walking or climbing stairs? Answer Date of Assessment Author Status No 10/15/2019 11:41 PM POST GRADUATE INTERN Enid Medina RN Active * Do you have difficulty dressing or bathing? Answer Date of Assessment Author Status No 10/15/2019 11:41 PM Enid Bravo RN Active * Because of a physical, mental, or emotional condition, do you have difficulty doing errands alone such as visiting a doctor's office or shopping? Answer Date of Assessment Author Status No 10/15/2019 11:41 PM Enid Bravo RN Active documented as of this encounter Mental Status * Because of a physical, mental, or emotional condition, do you have serious difficulty concentrating, remembering, or making decisions? Answer Entry Date Author Status No 10/15/2019 11:41 PM Enid Bravo RN Active documented in this encounter Plan of Treatment Not on file documented as of this encounter Visit Diagnoses Not on filedocumented in this encounter Care Teams Combatant Diver Qualified Relationship Specialty Start Date End Date Beka Aj DO [facility]. [facility] [address] [place] [address] PCP - General FAMILY PRACTICE 07/15/18 Stan Cox MD Three [facility]. [facility] [address] [place] [address] Marian Product Safety Administrator CARDIOVASCULAR DISEASE 07/15/18 documented as of this encounter
--- OUTSIDE RECORDS SUMMARY | 2025-02-23 13:51 | XMS_ITS | Clinical Summary ---
Author Organization [facility] Address [address] [place] [address] Care Team Providers Care Jet Operator Name Role Phone Stan Cox MD Unavailable [phone] Beka Aj DO Primary Care Provider [phone] Allergies Active Allergy Reactions Criticality Noted Date Comments Lisinopril Sneezing Low 06/13/2017 Penicillins Rash,Itching Low Medications carvedilol 25 MG tablet Take 2 tablets (50 mg total) by mouth 2 (two) times daily. 60 tablet 10/24/2019 Active amlodipine 10 MG tablet Take 1 tablet (10 mg total) by mouth daily. 30 tablet 10/25/2019 Active hydrALAZINE 25 MG tablet Take 1 tablet (25 mg total) by mouth every 8 (eight) hours. 120 tablet 10/24/2019 Active isosorbide dinitrate 10 MG tablet Take 1 tablet (10 mg total) by mouth 3 (three) times daily. 120 tablet 10/24/2019 Active losartan 50 MG tablet Take 1 tablet (50 mg total) by mouth daily. 30 tablet 10/25/2019 Active metFORMIN 1000 MG tablet Take 1 tablet (1,000 mg total) by mouth 2 (two) times daily with meals. 60 tablet 10/24/2019 Active atorvastatin 40 MG tablet Take 1 tablet (40 mg total) by mouth daily. 30 tablet 10/24/2019 Active bumetanide 2 MG tablet Take 1 tablet (2 mg total) by mouth daily. 30 tablet 1 10/24/2019 Active Active Problems Problem Noted Date Diagnosed Date CHF exacerbation ([facility]) 10/15/2019 CKD (chronic kidney disease) stage 3, GFR 30-59 ml/min 03/16/2019 Asymptomatic hypertensive urgency 03/16/2019 DORY (acute kidney injury) 06/29/2018 Assessment & Plan (06/29/2018 1:43 AM CDT): Acute. Present on admission. Likely cardiorenal disease for CHF, but poorly controlled BPs may be contributing. -trending creatinine CHF (congestive heart failure) ([facility]) 06/28/2018 Assessment & Plan (06/29/2018 1:41 AM CDT): Congestive Heart Failure exacerbation- HfrEF. Bedside echo shows reduced systolic function. BNP elevated and CXR shows signs of fluid overload. - Acute, POA - Daily weights - initial troponin elevated to 0.127 and uptrending. Cardiology recommended continue to trend, but no heparin. - follow up lipid panel and a1c - Fluid restriction to 1.5 L daily - Strict Is and Os - Obtain Echocardiogram - loop diuretic - Lasix 40 mg IV given - AVILA inhibitor - Lisinopril 10mg daily started - consider adding beta amie once no longer in acute exacerbation - Toprol XL (Metoprolol Succinate) 25mg daily - consider cardiology consult HTN (hypertension) 06/28/2018 Assessment & Plan (06/28/2018 11:19 PM CDT): Acute. Present on admission. Not well controlled. 217/129 on admission. -Patient has not been taking BPs Valsartan and amlodipine at home due lack of insurance -currently takes HCTZ 12.5 mg daily, will continue -will start lisinopril 10 mg dailly due to new onset CHF Type 2 diabetes mellitus wit h left diabetic foot infection ([facility]) 06/28/2018 Assessment & Plan (06/28/2018 11:28 PM CDT): Chronic. Controlled. -will hold home metformin -glucose checks 4 times daily -will add sliding scale if needed Arteriosclerosis of artery of extremity 07/02/20 17 Skin ulcer of left foot, mendoza ited to breakdown of skin ([facility]) 06/13/2017 Overview (11/19/2018): Last Assessment & Plan: On does not appear to be infected. Has an upcoming appointment with wound care. Immunizations Immunization Administration Dates Next Due Influenza Adult (Generic) 06/28/2017 Family History Medical History Relation Comments Diabetes Mother Relation Status Comments Mother Social History Tobacco Use Types Packs/Day Years [...] file Not on file Not on file Last Filed Vital Signs Vital Sign Reading Time Taken Comments Blood Pressure 134/55 10/24/2019 11:29 AM REGIONAL AGRONOMIST Pulse 54 10/24/2019 11:29 AM REGIONAL AGRONOMIST Temperature 36.6 C (97.9 F) 10/24/2019 11:29 AM REGIONAL AGRONOMIST Respiratory Rate 18 10/24/2019 11:2 9 AM REGIONAL AGRONOMIST Oxygen Saturation 92% 10/24/2019 11: 29 AM REGIONAL AGRONOMIST Inhaled Oxygen Concentration - - Weight 133.1 kg (293 lb 6.4 oz) 10/24/2019 4:16 AM REGIONAL AGRONOMIST Height 177.8 cm (5' 10) 10/15/2019 11: 40 PM REGIONAL AGRONOMIST Body Mass Index 42.1 10/15/2019 11:40 PM REGIONAL AGRONOMIST Plan of Treatment Health Maintenance Due Date Last Done Comments ASCVD Statin 1969 Colorectal Cancer Screening Colonoscopy (10 Years) 1969 Kidney Health Evaluation 1969 Annual Physical 1972 Diabetes: Retinopathy Eye Exam 1987 Hepatitis B Vaccines (1 of 3 - 19+ 3-dose series) 1988 Pneumococcal Vaccine: 50+ Years (1 of 2 - PCV) 1988 Zoster Vaccines (1 of 2) 2019 ASCVD LDL 06/29/2019 06/29/2018 Lipid Panel 06/29/2019 06/29/2018 DTaP, Tdap and Td Vaccines (1 - Tdap) 01/26/2021 01/25/2021 COVID-19 Vaccine (1 - 2023- season) 2024 Hemoglobin A1C 12/31/2024 07/03/2024, 06/0 11/2023, 01/25/2021, Additional history exists Hepatitis C Completed 07/03/2024, 07/03/2024 Meningococcal B Vaccine Aged Out No l onger eligible based on patient's age to complete this topic Meningococcal Vaccine Aged Out No ciro corine eligible based on patient's age to complete this topic RSV Immunizations Under 20 Months Aged Out No longer eligible based on patient's age to complete this topic Procedures Procedure Name Priority Date/Time Associated Diagnosis Comments HEMOGLOBIN, GLYCOSYLATED STAT 10/15/2019 10:31 PM REGIONAL AGRONOMIST LIPID PANEL Routine 06/29/2018 4:06 AM CDT from Last 3 Months or Most Recently Relevant to Health Maintenance Results * (ABNORMAL) HEMOGLOBIN, GLYCOSYLATED (10/15/2019 10:31 PM REGIONAL AGRONOMIST) HGB A1C 9.4(H) 4.2 - 6.3 % 10/16/2019 12:25 AM REGIONAL AGRONOMIST [facility] Comment: ADA GUIDELINES 2010 5.7 TO 6.4% INCREASED RISK OF DIABETES > OR = 6.5% CONSISTENT WITH DIABETES ESTIMATED AVG GLUCOSE 223 mg/dL 10/16/2019 12:25 AM REGIONAL AGRONOMIST [facility] 10/15/2019 10:3 1 PM REGIONAL AGRONOMIST Radha Krishnan DO LABORATORY Final Res ult [facility] [address] [place] [address], [place] [phone] * (ABNORMAL) LIPID PANEL (06/29/2018 4:06 AM CDT) CHOLESTEROL 230(H) <200 MG/DL 06/29/2018 4:35 AM CDT [facility] TRIGLYCERIDES 172(H) <150 MG/DL 06/29/2018 4:35 AM CDT [facility] HDL 44 >40.0 MG/DL 06/29/2018 4:35 AM CDT [facility] LDL (CALCULATED) 152(H) <100 MG/DL 06/29/2018 4:35 AM CDT [facility] NON HDL CHOLESTEROL 186(H) <130 MG/DL 06/29/2018 4:35 AM T [facility] CHOL/HDL RATIO 5.2(H) 0.0 - 4.5 06/29/2018 4:35 AM CDT [facility] VLDL CALCULATION 34 5 - 55 MG/DL 06/29/2018 4:35 AM T [facility] LIPID INTERPRETATION 06/29/2018 4:35 AM T [facility] Comment: NIH CONCENSUS REPORT RECOMMENDATIONS: ADULT CHILD LOW RISK: CHOLESTEROL <200 <170 TRIGLYCERIDE <150 --- HDL >=60 --- LDL <100 <110 BORDERLINE: CHOLESTEROL 200-239 170-199 TRIGLYCERIDE 150-199 --- HDL 40-59 --- LDL 100-159 110-129 HIGH RISK: CHOLESTEROL >=240 >=200 TRIGLYCERIDE >=200 --- HDL <40 --- LDL >=160 >=130 06/29/2018 4:06 AM CDT Herb Guardado MD LABORATORY Final Result [facility] [address] [place] [address], [place] [phone] from Last 3 Months or Most Recently Relevant to Health Maintenance Insurance [facility] Advance Directives * Full Code (Latest Code Status on File) Date Activated Date Inactivated Comments 10/15/2019 10:19 PM 10/24/2019 4:58 PM * Full Code Date Activated Date Inactivated Comments 03/16/2019 7:36 PM 03/17/2019 5:48 PM * Full Code Date Activated Date Inactivated Comments 06/29/2018 1:25 AM 07/02/2018 11:11 AM Care Teams Jet Operator Relationship Specialty Start Date End Date Beka Aj DO [address] [place] [address] PCP - General FAMILY PRACTICE 07/15/18 Stan Cox MD [address] [place] [address] Marian Hair Mixer CARDIOVASCULAR DISEASE 07/15/18
--- OUTSIDE RECORDS SUMMARY | 2025-02-23 13:51 | XMS_ITS | Encounter Summary ---
Author Organization [facility] Address [facility] [place] [address] Care Team Providers Care Chain Link Fence Installer Name Role Phone Stan Cox MD Unavailable [phone] Beka Aj DO Primary Care Provider [phone] Encounter Details Date Type Department Care Team (Late st Contact Info) Description 10/25/2019 Hospital Follow-up Call [facility] Telemetry Unit [address] [place] [address] Sybil Robles, Radial Drill Operator For Plastic Social History Tobacco Use Types Packs/Day Years [...] Assessment Author Status No 10/15/2019 11:41 PM SOFTWARE BUSINESS ANALYST Acti ve * RETIRED Are you blind or do you have serious difficulty seeing, even when wearing glasses? Answer Date of Assessment Author Status No 10/15/2019 11:41 PM SOFTWARE BUSINESS ANALYST Acti ve * Do you have serious difficulty walking or climbing stairs? Answer Date of Assessment Author Status No 10/15/2019 11:41 PM SOFTWARE BUSINESS ANALYST Enid Medina RN Active * Do you [...] on filedocumented in this encounter Care Teams Chain Link Fence Installer Relationship Specialty Start Date End Date Beka Aj DO [facility]. [facility] [address] [place] [address] PCP - General FAMILY PRACTICE 07/15/18 Stan Cox MD [address] [facility]. [facility] [address] [place] [address] Marian Power Generation Technician CARDIOVASCULAR DISEASE 07/15/18 documented as of this encounter
[2025-02-23 14:18] LABS: Basophils Absolute Auto 0.1 K/mm3 (0.0-0.1); Basophils Percent Auto 0.8 % (0.2-1.2); Eosinophils Absolute Auto 0.3 K/mm3 (0-0.3); Eosinophils Percent Auto 4.5 % (0-4.4); Hematocrit 33.7 % (42.0-52.0); Hemoglobin 10.4 g/dL (14.0-18.0); Immature Granulocyte Absolute 0.05 K/mm3 (0.00-0.031); Immature Granulocyte Percent A 0.8 % (0-0.5); Lymphocytes Absolute Auto 1.21 K/mm3 (0.9-3.2); Lymphocytes Percent Auto 18.6 % (18.3-44.2); Mean Corpuscular HGB Conc 30.9 g/dl (32-36); Mean Corpuscular Volume 103.7 fl (80-100); Mean Platelet Volume 9.3 fl (7.4-10.4); Monocytes Absolute Auto 0.7 K/mm3 (0.1-0.6); Monocytes Percent Auto 11.1 % (2.6-8.5); Neutrophils Absolute Auto 4.2 K/mm3 (1.3-6.7); Neutrophils Percent Auto 64.2 % (45.5-73.1); Platelet Count Result 241 k/mm3 (150-375); Red Blood Count 3.25 M/mm3 (4.6-6.20); Red Cell Distribution Width 12.6 % (11.5-14.5); White Blood Count 6.5 K/mm3 (4.5-10.0)
[2025-02-23 14:28] LABS: Cholesterol 212 mg/dL (0-200); HDL Direct 45 mg/dL; Triglycerides 158 mg/dL (<150)
[2025-02-23 14:38] LABS: LDL Cholesterol Direct 98 mg/dL
[2025-02-23 15:03] LABS: Free T4 Free Thyroxine. 1.04 ng/dL (0.78-2.19)
[2025-02-23 15:34] LABS: Hemoglobin A1C. 5.9 % (<5.7)
== END 2025-02-23 13:30 | disposition home or self-care (01) ==
PROVIDERS: PCP Physician Assistant; Visit Provider Physician Assistant
DX: Z51.81 Encounter for therapeutic drug level monitoring (principal); Z79.899 Other long term (current) drug therapy
CPT/HCPCS: 36415; 80061; 83036; 84439; 84443; 85025